=== PATIENT | female | born 1975 | race Caucasian/White ===

== ENCOUNTER 2016-06-09 00:52 | Inpatient (IN) | payer OTHER ==
[~2016-06-09] VITALS: Ht 160 cm; Wt 84.4 kg
[2016-06-09] VITALS (20 sets, daily range): BP systolic 107–172; BP diastolic 56–125
[~2016-06-09 00:52] MED LIST: ENDOCET 5-3251 EACH PO; FERROUS SULFAT325 MG PO; IBUPROFEN800 MG PO; PRENATAL TABLE1 EAC3 PO
[2016-06-09 02:16] LABS: EOSINOPHIL (%) 0.9 % (0-5); EOSINOPHIL COUNT 0.1 K/uL (0-0.3); HEMATOCRIT 37.1 % (36.0-46.0); IMMATURE GRANULOCYTE (%) 0.6 % (0.0-0.7); IMMATURE GRANULOCYTE COUNT 0.1 K/uL; INSTRUMENT ABS NEUTROPHIL CT 7.5 K/uL; LYMPHOCYTE COUNT 1.5 K/uL (1.0-2.8); MCH 30.6 PG (29.0-34.0); MCHC 33.4 G/DL (30.0-36.0); MCV 91.6 FL (83-99); MEAN PLAT.VOLUME 10.5 uM^3 (9.5-12.4); MONOCYTE (%) 7.6 % (3-12); MONOCYTE COUNT 0.8 K/uL (0-0.8); NEUTROPHIL (%) 75.8 % (45-76); NEUTROPHIL COUNT 7.5 K/uL (1.8-6.4); PLATELET COUNT 227 K/uL (156-360); RBC DIS.WIDTH-CV 13.9 % (11.8-14.6); RBC DIS.WIDTH-SD 46.6 % (39-53); RED BLOOD COUNT 4.05 M/uL (3.80-5.20); WHITE BLOOD COUNT 9.8 K/uL (4.1-10.2)
[2016-06-09] MEDS ORDERED: IBUPROFEN800 MG PO (13:14)
[2016-06-10] VITALS: BP 133/78
[2016-06-10 07:47] VITALS: BP 112/62
[2016-06-10 15:05] VITALS: BP 133/70
[2016-06-11 07:34] VITALS: BP 117/72
== END 2016-06-11 12:07 | disposition home or self-care (01) | DRG 775 ==
LOC: 2WEST 00:52 → 2SOUTH 08:18 → 2WEST 06-11 12:07
PROVIDERS: Nurse Practitioner
PROC: 10E0XZZ Delivery of Products of Conception, External Approach (ICD-10-PCS; principal; 2016-06-09)
PROC: 3E0S3CZ (ICD-10-PCS; principal; 2016-06-09)
PROC: 00HU33Z Insertion of Infusion Device into Spinal Canal, Percutaneous Approach (ICD-10-PCS; principal; 2016-06-09)
DX: O77.0 Labor and delivery complicated by meconium in amniotic fluid (principal); O09.523 Supervision of elderly multigravida, third trimester; E66.9 Obesity, unspecified; D64.9 Anemia, unspecified; O69.81X0 Labor and delivery complicated by cord around neck, without compression, not applicable or unspecified; O69.82X0 Labor and delivery complicated by other cord entanglement, without compression, not applicable or unspecified; O99.214 Obesity complicating childbirth; Z3A.39 39 weeks gestation of pregnancy; Z37.0 Single live birth; O99.824 Streptococcus B carrier state complicating childbirth; O99.02 Anemia complicating childbirth
CPT/HCPCS: 36415; 85025; 86850; 86900; 86901; C1755; J1580; J2540; J3010; J7050; J7120

== ENCOUNTER 2016-08-20 20:28 | Emergency (ER) | payer OTHER ==
[~2016-08-20] VITALS: Ht 160 cm; Wt 79.1 kg
[2016-08-20 23:23] VITALS: BP 156/82
== END 2016-08-20 23:24 | disposition home or self-care (01) ==
LOC: EME 20:28
PROC: 2W3SX1Z Immobilization of Right Foot using Splint (ICD-10-PCS; principal; 2016-08-20)
DX: S92.351A Displaced fracture of fifth metatarsal bone, right foot, initial encounter for closed fracture (principal); W18.30XA Fall on same level, unspecified, initial encounter
CPT/HCPCS: 73564; 73630; 99281; 99284